=== PATIENT | female | born 1970 | race African-American/Black ===

== ENCOUNTER 2017-01-02 01:27 | Emergency (ER) | payer MEDICARE, OTHER ==
[2017-01-02 01:31] VITALS: BP 156/99; PULSE 84; RESP 18; TEMP 98.1; O2SAT 99
[2017-01-02] MEDS ORDERED: TOPA100T11 PO (03:14)
[2017-01-02 03:17] VITALS: BP_SYST 145; BP_SYST 157; BP_DIAS 80; BP_DIAS 92
[2017-01-02] MEDS: NITROGLYCERIN 0.4 MG SL 25 TABS/BTL SL ONE (03:45)
[2017-01-02] MEDS: ASPIRIN 81 MG CHEW TAB PO ONE (03:45)
[2017-01-02] MEDS: NITROGLYCERIN 2% OINT 1 GM PACKET TOP ONE (03:45)
[2017-01-02] MEDS ORDERED: SODIUM CHLORIDE 0.9% FLUSH 10 ML FLUSH IVF PRN (03:45)
[2017-01-02 03:58] LABS: HEMATOCRIT 32.5 % (35.0-46.0); MEAN CELL VOLUME 82.5 FL (80.0-100.0); MEAN CORPUSCULAR HEMOGLOBIN 26.6 PG (27.0-34.0); MEAN CORPUSCULAR HGB CONC 32.3 % (32.0-36.0); PLATELET COUNT 185 TH/MM3 (150-450); RED BLOOD COUNT 3.94 MIL/MM3 (4.00-5.30); RED CELL DISTRIBUTION WIDTH 15.7 % (11.6-17.2); WHITE BLOOD COUNT 3.6 TH/MM3 (4.0-11.0)
[2017-01-02 04:04] LABS: HEMO FLAGS AUTO DIFF
--- NOTE | 2017-01-02 04:06 | RADRPT ---
EXAM DATE/TIME: 01/02/2017 03:46 [facility] COMPARISON: No previous studies available for comparison. INDICATIONS : Chest pain. MEDICAL HISTORY : None. SURGICAL HISTORY : None. ENCOUNTER: Initial ACUITY: 1 day PAIN SCORE: 6/10 LOCATION: Bilateral chest FINDINGS: A single view of the chest demonstrates the lungs to be symmetrically aerated without evidence of mas s, infiltrate or effusion. The cardiomediastinal contours are unremarkable. Osseous structures are intact. CONCLUSION: Normal examination. Glenn Paul MD on January 02, 2017 at 4:05 Board Certified Radiologist. This report was verified electronically.
[2017-01-02 04:14] LABS: APTT (PATIENT) 25.2 SEC (24.3-30.1); INTERNATIONAL NORMALIZED RATIO 1.1 RATIO; PROTHROMBIN TIME - PATIENT 11.7 SEC (9.8-11.6)
--- NOTE | 2017-01-02 04:51 | PD ---
HPI Chief Complaint: palpitations Time Seen by Provider: 03:14 Travel History International Travel<30 days: No Contact w/Intl Traveler<30days: No Traveled to known affect area: No History of Present Illness HPI The patient is a 46 year old female who presents to the [facility] emergency department with a history of palpitations that began earlier this evening. The patient reports that she's had intermittent palpitations since October. She reports that she is visiting from [place]. He recently drove down on Saturday. The patient reports that her primary care physician referred her to a convention manager. She reports that she has undergone a stress echo which was unremarkable. She also reports that she is wearing a 30 day Holter monitor. She reports that she was told that while she was on vacation she could take the monitor off. The patient reports that when she had palpitations this evening she also had shortness of breath. She reports that she took a BC powder prior to arrival for the aspirin content. The patient denies any history of cardiac disease, DVT, or PE. She denies having any lower extremity edema, calf pain, or erythema. On review of systems, the patient denies any recent fevers, cough, congestion, neck pain, chest pain, abdominal pain, vomiting, diarrhea, urinary symptoms, or neurologic symptoms. LMP December 18, 2016. [facility] Past Medical History Narrative Medical The patient's past medical history is significant for migraine headaches, recent palpitations, seasonal allergies. Migraines: Yes ?: Not Past Surgical History Narrative Surgical The patient's past surgical history is significant for 2 prior C-sections, and negative breast biopsy. Section: Yes Social History Alcohol Use: No Tobacco Use: No Substance Use: No Allergies-Medications (Allergen,Severity, Reaction): Coded Allergies: Latex (Verified Allergy, Severe, 01/02/17) Nubain (Verified Allergy, Severe, Itching, 01/02/17) Penicillin (Verified Allergy, Severe, Hives, 01/02/17) Toradol (Verified Allergy, Severe, Swelling, 01/02/17) Reported Meds & Prescriptions Reported Meds & Active Scripts Active Reported Topamax (Topiramate) 100 Mg Tab 100 Mg PO BID Review of Systems Except as stated in HPI: all other systems reviewed are Neg General / Constitutional: No: Fever Eyes: No: Visual changes HENT: No: Headaches Cardiovascular: Positive: Palpitations, No: Chest Pain or Discomfort, Edema Respiratory: Positive: Shortness of Breath, No: Cough Gastrointestinal: No: Nausea, Vomiting, Diarrhea, Abdominal Pain Genitourinary: No: Dysuria Musculoskeletal: No: Pain Skin: No Rash Neurologic: No: Weakness Psychiatric: No: Depression Endocrine: No: Polydipsia Hematologic/Lymphatic: No: Easy Bruising Physical Exam Narrative General: The patient is a well-developed well-nourished female in no acute distress. Head and Neck exam: Head is normocephalic atraumatic. Eyes: EOMI, pupils are equal round and reactive to light. Nose: Midline septum with pink mucous membranes Mouth: Dentition unremarkable. Moist mucus membranes. Posterior oropharynx is not erythematous. No tonsillar hypertrophy. Uvula midline. Airway patent. Neck: No palpable lymphadenopathy. No nuchal rigidity. No thyromegaly. Cardiovascular: Regular rate and rhythm without murmurs, gallops, or rubs. No pulse deficit to the extremities. Lungs: Clear to auscultation bilaterally. No wheezes, rhonchi, or rales. Abdomen: Soft, without tenderness to palpation in all 4 quadrants of the abdomen. No guarding, rebound, or rigidity. Normal bowel sounds are audible. Extremities: No clubbing, cyanosis, or edema. 2+ pulses in all 4 extremities. No calf tenderness on palpation. Back: No spinous process tenderness to palpation. No costovertebral angle tenderness to palpation. Neurologic Exam: Grossly nonfocal. Skin Exam: No rash noted. Intact skin that is warm and dry. Data Data Last Documented VS Vital Signs Date Time Temp Pulse Resp B/P Pulse Ox O2 Delivery O2 Flow Rate FiO2 01/02/17 05:03 98 Room Air 01/02/17 03:17 145/80 157/92 01/02/17 01:31 98.1 84 18 Orders Electrocardiogram (01/02/17 ) B-Type Natriuretic Peptide (01/02/17 03:39) Ckmb (Isoenzyme) Profile (01/02/17 03:39) Complete Blood Count With Diff (01/02/17 03:39) Comprehensive Metabolic Panel (01/02/17 03:39) D-Dimer (01/02/17 03:39) Magnesium (Mg) (01/02/17 03:39) Prothrombin Time / Inr (Pt) (01/02/17 03:39) Act Partial Throm Time (Ptt) (01/02/17 03:39) Troponin I (01/02/17 03:39) Lipase (01/02/17 03:39) Chest, Single Ap (01/02/17 03:39) Ecg Monitoring (01/02/17 03:39) Bilateral Bp Monitoring (01/02/17 03:39) Iv Access Insert/Monitor (01/02/17 03:39) Oximetry (01/02/17 03:39) Oxygen Administration (01/02/17 03:39) Aspirin Chew (Aspirin Chew) (01/02/17 03:45) Nitroglycerin 2% Oint (Nitroglycerin 2% (01/02/17 03:45) Sodium Chloride 0.9% Flush (Ns Flush) (01/02/17 03:45) Nitroglycerin Sl (Nitrostat Sl) (01/02/17 03:45) Ed Urine Pregnancytest Poc (01/02/17 03:39) Ct Pulmonary Angiogram (01/02/17 04:34) CKMB (01/02/17 04:50) CKMB% (01/02/17 04:50) Sodium Chlor 0.9% 1000 Ml Inj (Ns 1000 M (01/02/17 06:15) Iohexol 350 Inj (Omnipaque 350 Inj) (01/02/17 06:03) Labs Laboratory Tests Test 01/02/17 01/02/17 03:45 05:58 White Blood Count 3.6 TH/MM3 Red Blood Count 3.94 MIL/MM3 Hemoglobin 10.5 GM/DL Hematocrit 32.5 % Mean Corpuscular Volume 82.5 FL Mean Corpuscular Hemoglobin 26.6 PG Mean Corpuscular Hemoglobin 32.3 % Concent Red Cell Distribution Width 15.7 % Platelet Count 185 TH/MM3 Mean Platelet Volume 9.9 FL Neutrophils (%) (Auto) % Lymphocytes (%) (Auto) % Monocytes (%) (Auto) % Eosinophils (%) (Auto) % Basophils (%) (Auto) % Neutrophils # (Auto) TH/MM3 Lymphocytes # (Auto) TH/MM3 Monocytes # (Auto) TH/MM3 Eosinophils # (Auto) TH/MM3 Basophils # (Auto) TH/MM3 CBC Comment AUTO DIFF Differential Total Cells 100 Counted Neutrophils % (Manual) 61 % Lymphocytes % 27 % Monocytes % 10 % Eosinophils % 2 % Neutrophils # (Manual) 2.2 TH/MM3 Differential Comment FINAL DIFF MANUAL Platelet Estimate NORMAL Platelet Morphology Comment NORMAL Ovalocytes 1+ Prothrombin Time 11.7 SEC Prothromb Time International 1.1 RATIO Ratio Activated Partial 25.2 SEC Thromboplast Time D-Dimer Quantitative (PE/DVT) 1.11 MG/L FEU B-Type Natriuretic Peptide 4 PG/ML Sodium Level 136 MEQ/L Potassium Level 3.9 MEQ/L Chloride Level 106 MEQ/L Carbon Dioxide Level 22.9 MEQ/L Anion Gap 7 MEQ/L Blood Urea Nitrogen 10 MG/DL Creatinine 0.57 MG/DL Estimat Glomerular Filtration 139 ML/MIN Rate Random Glucose 83 MG/DL Calcium Level 8.0 MG/DL Magnesium Level 2.0 MG/DL Total Bilirubin 0.3 MG/DL Aspartate Amino Transf 79 U/L (AST/SGOT) Alanine Aminotransferase 29 U/L (ALT/SGPT) Alkaline Phosphatase 86 U/L Total Creatine Kinase 1272 U/L Creatine Kinase MB 5.4 NG/ML Creatine Kinase MB % 0.4 % Troponin I LESS THAN 0.02 NG/ML Total Protein 9.1 GM/DL Albumin 3.3 GM/DL Lipase 83 U/L MDM Medical Decision Making Medical Screen Exam Complete: Yes Emergency Medical Condition: Yes Medical Record Reviewed: Yes Interpretation(s) Last Impressions CT Angiography 01/02/17 0434 Signed Impressions: Service Date/Time: Monday, January 02, 2017 06:01 - CONCLUSION: Normal examination. Glenn Paul MD Chest X-Ray 01/02/17 0339 Signed Impressions: Service Date/Time: Monday, January 02, 2017 03:46 - CONCLUSION: Normal examination. Glenn Paul MD Differential Diagnosis Electrolyte abnormality, versus dehydration, versus pulmonary embolism, versus acute coronary syndrome Narrative Course During the course of the patients emergency department visit, the patients history, examination, and differential diagnosis were reviewed with the patient. The patient had IV access obtained and blood work sent for analysis. The patient was placed on a front desk monitor with oximetry and blood pressure monitoring. The patient had an EKG done on arrival. The EKG shows a sinus rhythm heart rate of 85, possible left atrial enlargement, no other acute abnormality. No ST segment elevation or depression, T waves are inverted in V1. The patient had ordered to be administered sublingual nitroglycerin times one, nitroglycerin 1 inch the chest wall, aspirin 162 mg by mouth 1, however the patient refused the nitroglycerin due to having this in the past and having a headache associated with it. The patient also refused aspirin as she reports that she did take a BC powder prior to arrival. The patient had a liter of normal saline written to be administered, however she refused this prior to leaving AGAINST MEDICAL ADVICE. The patients laboratory studies were reviewed and remarkable for a white count of 3.6, hemoglobin 10.5, platelets 185 with a differential remarkable for 10 monocytes. Unfortunately, the patient's chemistries and cardiac enzymes were repeatedly re-collected extending her stay in the emergency department. The patient became angry regarding this. PT 11.7, PTT 25.2, d-dimer is 1.11. CTA to rule out PE was ordered. The patient's CMP showed a calcium of 8.0, AST 79, CPK 1272, MB percent 0.4, troponin I less than 0.02, lipase 83. Radiology studies were reviewed and remarkable for a chest x-ray that showed no acute abnormality. The patient prior to her CT scan being resulted decided that she wanted to leave AGAINST MEDICAL ADVICE as she was tired of waiting. The patient was made aware of the rhabdomyolysis and her need for IV for fluids , however the patient refused. AMA: The risks of leaving against medical advice without further evaluation treatment were discussed with the patient. These risks include cardiac dysfunction, cardiac dysrhythmia, possible heart attack, renal failure, or . The patient indicated understanding of these risks and appeared to have the capacity to make this decision. Diagnosis Primary Impression: Left against medical advice Additional Impressions: Rhabdomyolysis Qualified Code: M62.82 - Non-traumatic rhabdomyolysis Palpitations Disposition: AGAINST MEDICAL ADVICE Condition: Clary Topete MD Jan 02, 2017 04:51
[2017-01-02 05:03] VITALS: O2SAT 98
[2017-01-02 05:08] LABS: EOSINOPHILS 2 % (0-4); NEUTROPHIL # MANUAL DIFF 2.2 TH/MM3 (1.8-7.7); POLYS (SEG NEUTROPHILS) 61 % (16-70); WBC DIFF SAMPLE 100
[2017-01-02 05:09] LABS: OVALOCYTES 1+ (NORMAL); PLATELET ESTIMATE SMEAR NORMAL (NORMAL); PLATELET MORPHOLOGY NORMAL (NORMAL); SCAN/DIFF FINAL DIFF MANUAL
[2017-01-02 05:20] LABS: ALKALINE PHOSPHATASE 86 U/L (45-117); ALT (GPT) 29 U/L (10-53); ANION GAP 7 MEQ/L (5-15); AST (GOT) 79 U/L (15-37); BICARBONATE 22.9 MEQ/L (21.0-32.0); BLOOD UREA NITROGEN 10 MG/DL (7-18); CHLORIDE 106 MEQ/L (98-107); CREATINE KINASE 1272 U/L (26-192); GLOMERULAR FILTRATION RATE 139 ML/MIN (>89); SODIUM (NA) 136 MEQ/L (136-145); TOTAL BILIRUBIN ADULT 0.3 MG/DL (0.2-1.0)
[2017-01-02] MEDS ORDERED: IOHEXOL 350 MG/ML 10 ML VIAL (for RAD DIAG) IV ONE (06:03)
[2017-01-02] MEDS ORDERED: SODIUM CHLOR 0.9% 1000 ML INJ 1,000 ML IV ONE (06:15)
--- NOTE | 2017-01-02 06:15 | RADRPT ---
EXAM DATE/TIME: 01/02/2017 06:01 [facility] COMPARISON: CHEST SINGLE AP, January 02, 2017, 3:46. INDICATIONS : Shortnee of breath. Elevated D-Dimer. IV CONTRAST: 75 cc Omnipaque 350 (iohexol) IV RADIATION DOSE: 23.38 CTDIvol (mGy) MEDICAL HISTORY : Cardiovascular disease. Hypertension. SURGICAL HISTORY : None. ENCOUNTER: Initial ACUITY: 1 day PAIN SCALE: 0/10 LOCATION: chest TECHNIQUE: Volumetric scanning of the chest was performed using a pulmonary embolism protocol MIP images were re constructed. Using automated exposure control and adjustment of the mA and/or kV according to patien t size, radiation dose was kept as low as reasonably achievable to obtain optimal diagnostic quality images. FINDINGS: PULMONARY ARTERIES: No filling defects are seen in the pulmonary arteries through the segmental level. LUNGS: There is no consolidation or pneumothorax . No concerning pulmonary nodule is visualized. PLEURAE: There is no pleural thickening or pleural effusion. MEDIASTINUM: There is good visualization of the great vessels of the middle mediastinum. No evidence of mediastin al or hilar adenopathy/mass. MUSCULOSKELETAL: Within normal limits for patient age. MISCELLANEOUS: The visualized upper abdominal organs demonstrate no acute abnormality. CONCLUSION: Normal examination. Glenn Paul MD on January 02, 2017 at 6:13 Board Certified Radiologist. This report was verified electronically.
[2017-01-02 06:52] LABS: POTASSIUM 3.9 MEQ/L (3.5-5.1)
[2017-01-02 06:53] LABS: CKMB 5.4 NG/ML (0.5-3.6)
--- NOTE | 2017-01-02 22:29 | EKG ---
Date Performed: 01/02/2017 Time Performed: 01:37:21 PTAGE: 46 years EKG: Sinus rhythm POSSIBLE LEFT ATRIAL ENLARGEMENT BORDERLINE ECG NO PREVIOUS TRACING DOCTOR: Lukas Pierre Interpretating Date/Time 01/02/2017 22:27:26
== END 2017-01-02 06:28 | disposition left against medical advice (07) ==
LOC: NEPE 01:27
DX: M62.82 Rhabdomyolysis (principal); R94.31 Abnormal electrocardiogram [ECG] [EKG]; Z53.21 Procedure and treatment not carried out due to patient leaving prior to being seen by health care provider
CPT/HCPCS: 71010; 71275; 80053; 82550; 82552; 83690; 83735; 83880; 84484; 84703; 85007; 85027; 85379; 85610; 85730; 93005; 99285; Q9967